=== PATIENT | male | born 1965 | race Two or more races ===

== ENCOUNTER 2024-07-04 21:05 | Emergency (ER) | payer MEDICAID ==
[~2024-07-04] VITALS: Ht 182.9 cm; Wt 83.9 kg
[2024-07-04 22:11] LABS: BASOPHILS % (AUTO) 0.2 % (0.0-2.0); EOSINOPHILS # (AUTO) 0.2 K/uL (0.0-0.7); EOSINOPHILS % (AUTO) 1.2 % (0.0-7.0); HEMATOCRIT 39.9 % (36.7-47.1); HEMOGLOBIN 13.6 g/dL (12.5-16.3); LYMPHOCYTES # (AUTO) 1.3 K/uL (0.8-4.8); LYMPHOCYTES % (AUTO) 8.6 % (20.5-51.5); MEAN CORPUSCULAR HEMOGLOBIN 30.7 uug (23.8-33.4); MEAN CORPUSCULAR HGB CONC 34 g/dL (32.5-36.3); MEAN CORPUSCULAR VOLUME 89.9 fL (73.0-96.2); MONOCYTES # (AUTO) 1.2 K/uL (0.1-1.30); MONOCYTES % (AUTO) 8.1 % (0.0-11.0); NEUTROPHILS # (AUTO) 12.2 K/uL (1.8-8.9); NEUTROPHILS % (AUTO) 81.9 % (38.5-71.5); PLATELET COUNT (AUTO) 216 K/uL (152-348); RED BLOOD CELL COUNT(AUTO) 4.43 MIL/uL (4.06-5.63); RED CELL DISTRIBUTION WIDTH 13.8 % (12.1-16.2); WHITE BLOOD COUNT (AUTO) 14.9 K/uL (3.6-10.2)
[2024-07-04 22:18] LABS: DIFFERENTIAL COMMENT 1
[2024-07-04 22:18] LABS: *BILIRUBIN,URIN NEGATIVE (NEGATIVE); *BLOOD, URINE NEGATIVE (NEGATIVE); *CLARITY,URINE CLEAR (CLEAR); *COLOR,URINE YELLOW (YELLOW); *KETONES,URINE TRACE (NEGATIVE); *PROTEIN,URINE 1+ (NEGATIVE); LEUKOCYTE ESTERASE ,URINE NEGATIVE (NEGATIVE); NITRITE, URINE NEGATIVE (NEGATIVE)
[2024-07-04] MEDS ORDERED: ASPIRIN 81 MG TAB.CHEW ONE (22:22)
[2024-07-04] MEDS ORDERED: ONDANSETRON 4 MG/2 ML VIAL ONE (22:22)
[2024-07-04] MEDS ORDERED: LABETALOL HCL 100 MG/20 ML VIAL ONE (22:23)
[2024-07-04] MEDS ORDERED: NITROGLYCERIN OINT 1 GM PACKET TP ONE (22:23)
[2024-07-04] MEDS ORDERED: HYDROMORPHONE 1 MG/1 ML DISP.SYRIN ONE (22:23)
[2024-07-04 22:26] LABS: UGLUCOSE 1+ (NEGATIVE)
[2024-07-04 22:27] LABS: *AMPHETAMINE, URINE NEGATIVE (NEGATIVE); *BARBITURATE, URINE NEGATIVE (NEGATIVE); *BENZODIAZEPINE, URINE NEGATIVE (NEGATIVE); *CANNABINOID, URINE NEGATIVE (NEGATIVE); *COCCAINE, URINE NEGATIVE (NEGATIVE); *OPIATE, URINE POSITIVE (NEGATIVE); *PHENCYCLIDINE SCREEN,URINE NEGATIVE (NEGATIVE); FENTANYL, URINE NEGATIVE (NEGATIVE)
[2024-07-04 22:28] LABS: CALCIUM 9.4 mg/dL (8.5-10.1); CARBON DIOXIDE 27 mmol/L (21-32); CHLORIDE 93 mmol/L (98-107); GLUCOSE 249 mg/dL (74-106); POTASSIUM 4.2 mmol/L (3.5-5.1); SODIUM SERUM 131 mmol/L (136-145); UREA NITROGEN, BLOOD 16 mg/dL (7-18)
[2024-07-04 22:32] LABS: BACTERIA,URINE FEW /HPF (NONE SEEN); RBC,URINE 0-3 /HPF (0-3); SQUAMOUS EPITHELIAL CELL,UR FEW /HPF (NONE SEEN); WBC,URINE NONE SEEN /HPF (0-3)
[2024-07-04 22:41] LABS: ALANINE AMINOTRANSFERASE 22 U/L (16-63); ALBUMIN 4.3 g/dL (3.4-5.0); ALKALINE PHOSPHATASE 69 U/L (50-136); ASPARTATE AMINOTRANSFERASE 11 U/L (15-37); BILIRUBIN,DIRECT 0.2 mg/dL (0.0-0.2); BILIRUBIN,TOTAL 0.5 mg/dL (0.2-1.0); NT-PRO BNP 13 pg/mL (0-125); TOTAL PROTEIN, SERUM 8.4 g/dL (6.4-8.2)
[2024-07-04] MEDS: NITROGLYCERIN OINT 1 GM PACKET TP ONE (22:45)
[2024-07-04 22:46] VITALS: BP 154/115
[2024-07-04] MEDS: ONDANSETRON 4 MG/2 ML VIAL IV ONE (22:46)
[2024-07-04] MEDS: LABETALOL HCL 100 MG/20 ML VIAL IV ONE (22:46)
[2024-07-04] MEDS: ASPIRIN 81 MG TAB.CHEW PO ONE (22:46)
[2024-07-04] MEDS: HYDROMORPHONE 1 MG/1 ML DISP.SYRIN IV ONE (22:46)
[2024-07-05 00:55] VITALS: O2SAT 95
[2024-07-05] MEDS ORDERED: HYDROMORPHONE 1 MG/1 ML DISP.SYRIN ONE (02:48)
[2024-07-05] MEDS: HYDROMORPHONE 1 MG/1 ML DISP.SYRIN IV ONE (03:25)
== END 2024-07-05 04:21 ==
LOC: ER 21:05
DX: R07.89 Other chest pain (principal); R06.00 Dyspnea, unspecified; M25.512 Pain in left shoulder; R00.0 Tachycardia, unspecified; E11.9 Type 2 diabetes mellitus without complications; E78.5 Hyperlipidemia, unspecified; F17.210 Nicotine dependence, cigarettes, uncomplicated; I10 Essential (primary) hypertension; R51.9 Headache, unspecified; Z88.0 Allergy status to penicillin; Z90.49 Acquired absence of other specified parts of digestive tract; Z20.822 Contact with and (suspected) exposure to COVID-19
CPT/HCPCS: 99285; 96374; 70450; 96375; 71045; 99406; 80076; 80048; 81001; 83880; 85025; 85379; 84484 ×2; 36415; 93005; 80307; 87426; 96376; J1171 ×2; J3490; J2405; A4606; A4663